=== PATIENT | female | born 1955 | race Caucasian/White ===

== ENCOUNTER 2020-06-23 14:46 | Emergency (ER) | payer MEDICARE, MEDICAID, SELFPAY ==
[2020-06-23 15:28] VITALS: BP 145/85; PULSE 94; RESP 18; TEMP 36.4; O2SAT 97; BMI 38.2
[2020-06-23 15:48] LABS: Glucose, Whole Blood 465 mg/dL (60-115)
[2020-06-23 15:54] LABS: Glucose, Whole Blood 465 mg/dL (60-115)
--- NOTE | 2020-06-23 17:58 | ED.GENADULT ---
HPI - General Adult General Chief complaint: Recheck/Abnormal Lab/Rx Stated complaint: high blood sugar Time Seen by Provider: 06/23/20 17:50 Source: patient Mode of arrival: ambulatory History of Present Illness HPI narrative: patient states yesterday was at outside hospital which was diagnosed with high blood sugar. At that point was sent home on metformin however did not have a prescription for a period since then patient has had no nausea no vomiting no abdominal pain. No dizziness no chest pain. Patient did check her blood sugar today was greater than 400 and came into the emergency department to get evaluated. Patient does state of urine frequency however no dysuria. No fevers no chills. Onset (ago): day(s) Related Data Previous Rx's Medication Instructions Recorded metformin 500 mg PO DAILY #30 tab 06/23/20 nystatin 1 applic TOPICAL DAILY #30 g 06/23/20 Allergies Allergy/AdvReac Type Severity Reaction Status Date / Time No Known Allergies Allergy Verified 06/23/20 15:26 Review of Systems Review of Systems: Yes all other systems are reviewed and are negative Constitutional: Comments: Constitutional : No Weight loss, No Fever, No Chills, No Night Sweats, No Fatigue, No Malaise ENT/Mouth : No Hearing loss, No Ear Pain, No Nasal Congestion, No Sinus Pain, No Hoarseness, No sore throat, No Rhinorrhea, No Swallowing Difficulty Eyes: No Eye Pain, No Swelling, No Redness, No Foreign Body, No Discharge, No Vision Changes Cardiovascular : No Chest Pain, No SOB, No Dyspnea on Exertion, No Orthopnea, No Edema, No Palpitations Respiratory : No Cough, No Sputum, No Wheezing, No Smoke Exposure, No Dyspnea Gastrointestinal : No Nausea, No Vomiting, No Diarrhea, No Constipation, No abdominal Pain, No Hematochezia, No Melena Genitourinary : no irregular bleeding, No Dysuria, Increased urinary frequency No Urinary Incontinence, No Urgency, No Flank Pain, No Urinary Flow Changes, No Hesitancy Musculoskeletal : No joint pain, No Myalgias, No Joint Swelling Skin : No Skin Lesions, mild fungal rash to anterior groin area Neuro : No Weakness, No Numbness, No Paresthesias, No Loss of Consciousness, No Dizziness, No Headache Psych : No Anxiety/Panic, No Depression, No SI/HI/AH/VH, No Social Issues, Heme/Lymph: No Bruising, No Bleeding,No Lymphadenopathy Endocrine : No Polyuria, No Polydipsia, No Temperature Intolerance [facility] Past Medical History Attestation statement: The following information was validated with the patient. Medical History (Updated 06/23/20 @ 21:21 by Jonathon Rudd DO) No known health problems Patient denies medical problems Social History Social History (Updated 06/23/20 @ 18:00 by Jonathon Rudd DO) Household Members: Family Smoking Status: Never smoker Use of substances other than those prescribed or required for medical reasons: No Advance Directives: No Advance Directives Information Provided: Yes Physical Exam Vital Signs and I&O and Narrative: Vital Signs and I&O: Vital Signs Temp 98.5 F 06/23/20 18:45 Pulse 89 06/23/20 18:45 Resp 20 06/23/20 18:45 BP 124/82 06/23/20 18:45 Pulse Ox 96 06/23/20 18:45 Intake & Output 06/23/20 06/23/20 06/24/20 06:59 18:59 06:59 Intake Total 1000 / 1000 Balance 1000 / 1000 Weight 94.801 kg Intake: Intake, IV Amoun t 1000 / 1000 0.9 % Sodium C hloride 1,000 ml 1000 / 1000 @ 999 mls/hr I VCONT .Q1H1M [facility] Rx#:[id number] Body Mass Index 38.2 vital signs reviewed Const: Other: Appearance: Alert. Oriented X3. No acute distress. Eyes: Pupils equal, round and reactive to light. ENT: Pharynx normal. Neck: Normal inspection. Neck supple. CVS: Normal heart rate and rhythm. Pulses normal. Respiratory: No respiratory distress. Breath sounds normal. Abdomen: Soft and nontender. mild fungal rash in genital area. No abscess. No lacerations Skin: Skin warm and dry. Normal skin color. Normal skin turgor. Extremities: No lower extremity edema. No lower extremity edema. Neuro: Oriented X 3. No motor deficit. No sensory deficit. Course Course Course Narrative: differential diagnosis includes DKA. UTI. Hyperglycemia patient re-evaluated at 21:20. Patient shows no signs of DKA. Patient ambulatory tolerating p.o. as. Patient's sugar has improved slightly however has had chronically and will take a long time for to decrease. I will ask Case Management to call to assist with home medications and and insurance. Agrees going home Medical Decision Making Lab Data Result diagrams: 06/23/20 19:01 06/23/20 19:01 Labs: Lab Results 06/23/20 06/23/20 06/23/20 Range/Units 15:39 15:39 19:01 WBC 7.1 (4.8-10.8) X10*3/uL RBC 4.10 L (4.20-5.50) X10*6/uL Hgb 12.4 (12.0-16.0) g/dl Hct 39.8 (37-47) % MCV 97.1 (80-98) fL MCH 30.2 (27.0-33.0) pg MCHC 31.2 (31.0-35.0) g/dl RDW 12.9 (11.0-16.0) % Plt Count 237 (160-400) X10*3/uL MPV 10.9 (9.4-12.3) fL Immature Gran % (Auto) 0.3 (0.0-0.4) % Neut % (Auto) 63.9 (45-73) % Lymph % (Auto) 23.5 (20-40) % Haywood % (Auto) 7.9 (2-11) % Eos % (Auto) 3.3 (0-4) % Baso % (Auto) 1.1 (0-2) % Neut # (Auto) 4.5 (2.0-8.3) X10*3/uL Lymph # (Auto) 1.7 (1.2-4.9) X10*3/uL Haywood # (Auto) 0.6 (0.1-1.2) X10*3/uL Eos # (Auto) 0.2 (0.0-0.4) X10*3/uL Baso # (Auto) 0.1 (0.0-0.2) X10*3/uL Abs Immat Gran (auto) 0.02 (0.00-0.03) X10*3/uL Absolute Nucleated RBC 0.000 (0.0-0.012) X10*3/uL Nucleated RBC % (auto) 0.0 (0.0-0.2) /100WBC Sodium (135-145) mmol/L Potassium (3.3-5.1) mmol/l Chloride (96-108) mmol/L Carbon Dioxide (22-29) mmol/L Anion Gap (12-20) BUN (9-16) mg/dL Creatinine (0.5-1.4) mg/dL Estim Creat Clear Calc Estimated GFR POC Glucose 465 H* 465 H* (60-115) mg/dL Random Glucose (60-115) mg/dL Calcium (8.4-10.2) mg/dL Acetone, Qual (Negative) 06/23/20 Range/Units 19:01 WBC (4.8-10.8) X10*3/uL RBC (4.20-5.50) X10*6/uL Hgb (12.0-16.0) g/dl Hct (37-47) % MCV (80-98) fL MCH (27.0-33.0) pg MCHC (31.0-35.0) g/dl RDW (11.0-16.0) % Plt Count (160-400) X10*3/uL MPV (9.4-12.3) fL Immature Gran % (Auto) (0.0-0.4) % Neut % (Auto) (45-73) % Lymph % (Auto) (20-40) % Haywood % (Auto) (2-11) % Eos % (Auto) (0-4) % Baso % (Auto) (0-2) % Neut # (Auto) (2.0-8.3) X10*3/uL Lymph # (Auto) (1.2-4.9) X10*3/uL Haywood # (Auto) (0.1-1.2) X10*3/uL Eos # (Auto) (0.0-0.4) X10*3/uL Baso # (Auto) (0.0-0.2) X10*3/uL Abs Immat Gran (auto) (0.00-0.03) X10*3/uL Absolute Nucleated RBC (0.0-0.012) X10*3/uL Nucleated RBC % (auto) (0.0-0.2) /100WBC Sodium 138 (135-145) mmol/L Potassium 3.9 (3.3-5.1) mmol/l Chloride 100 (96-108) mmol/L Carbon Dioxide 28 (22-29) mmol/L Anion Gap 14 (12-20) BUN 5 L (9-16) mg/dL Creatinine 0.82 (0.5-1.4) mg/dL Estim Creat Clear Calc 72.4 Estimated GFR > 60 POC Glucose (60-115) mg/dL Random Glucose 406 H* (60-115) mg/dL Calcium 8.5 (8.4-10.2) mg/dL Acetone, Qual Moderate H (Negative) Discharge Plan Discharge Clinical Impression: Acute hyperglycemia, Candidiasis of genitalia in female Patient Disposition: Home, Self-Care Instructions: Type 2 Diabetes in Adults: New Diagnosis (ED), Skin Yeast Infection (ED) Additional Instructions: Thank you for visiting the emergency department today. If your symptoms worsen or do not resolve completely please return to the emergency department immediately or call 911. if he have any questions please call your primary care physician Prescriptions: New metformin 500 mg tablet 500 mg PO DAILY Qty: 30 RF: 0 nystatin 100,000 unit/gram ointment 1 applic topical DAILY Qty: 30 RF: 0 Referrals: [facility] [Provider Group] - 2 days
[2020-06-23 18:45] VITALS: BP 124/82; PULSE 89; RESP 20; TEMP 36.9; O2SAT 96
[2020-06-23 19:07] LABS: MANUAL DIFF FLAG NO
[2020-06-23 19:09] LABS: Basophils Absolute Auto 0.1 X10*3/uL (0.0-0.2); Basophils Percent Auto 1.1 % (0-2); Eosinophils Absolute Auto 0.2 X10*3/uL (0.0-0.4); Eosinophils Percent Auto 3.3 % (0-4); Hematocrit 39.8 % (37-47); Hemoglobin 12.4 g/dl (12.0-16.0); Imm Gran Abs Auto 0.02 X10*3/uL (0.00-0.03); Imm Gran Pct Auto 0.3 % (0.0-0.4); Lymphocytes Absolute Auto 1.7 X10*3/uL (1.2-4.9); Lymphocytes Percent Auto 23.5 % (20-40); Mean Corpuscular HGB Conc 31.2 g/dl (31.0-35.0); Mean Corpuscular Hemoglobin 30.2 pg (27.0-33.0); Mean Corpuscular Volume 97.1 fL (80-98); Mean Platelet Volume 10.9 fL (9.4-12.3); Monocytes Absolute Auto 0.6 X10*3/uL (0.1-1.2); Monocytes Percent Auto 7.9 % (2-11); Neutrophils Absolute Auto 4.5 X10*3/uL (2.0-8.3); Neutrophils Percent Auto 63.9 % (45-73); Platelet Count 237 X10*3/uL (160-400); Red Cell Distribution Width 12.9 % (11.0-16.0); White Blood Count 7.1 X10*3/uL (4.8-10.8)
[2020-06-23] MEDS: 0.9 % Sodium Chloride 1,000 ML 999 ML IVCONT (19:21)
[2020-06-23 19:33] LABS: Acetone, serum QL Moderate (Negative)
[2020-06-23 19:42] LABS: Anion Gap 14 (12-20); Blood Urea Nitrogen 5 mg/dL (9-16); Calcium 8.5 mg/dL (8.4-10.2); Carbon Dioxide 28 mmol/L (22-29); Chloride 100 mmol/L (96-108); Creatinine Clr Calc Pharmacy 72.4; Estimated Glomerular Filt Rate > 60; Glucose Random 406 mg/dL (60-115); Potassium 3.9 mmol/l (3.3-5.1); Sodium 138 mmol/L (135-145)
--- NOTE | 2020-06-23 20:27 | PC.NURSE ---
daughter called, pt ok'd to update daughter
[2020-06-23] MEDS: metFORMIN HCl 500 MG TABLET PO (22:00)
== END 2020-06-23 22:19 | disposition home or self-care (01) ==
PROVIDERS: Emergency Provider Emergency Medicine
DX: B37.3 Candidiasis of vulva and vagina (principal); R73.9 Hyperglycemia, unspecified
CPT/HCPCS: 36415; 80048; 82009; 82947; 85025; 96361; 96374; 99284

== ENCOUNTER 2020-07-30 17:00 | Outpatient (REF) | payer MEDICARE, MEDICAID, SELFPAY ==
--- NOTE | 2020-07-30 | MM_ITS ---
EXAMINATION: MM SCREENING DIGITAL BREAST TOMOSYNTHESIS, BILATERAL CLINICAL INFORMATION: Screening. Asymptomatic. Prior [id number] mammography currently unavailable. The lifetime risk of breast cancer based on the Tyrer-Cuzick Model is 12%. COMPARISON: None. TECHNIQUE: Digital breast tomosynthesis is performed in both the craniocaudal and mediolateral oblique views along with computer-aided detection (CAD). Synthesized 2D images are generated from the tomosynthesis. Additional left CC view is provided. FINDINGS: The breasts are almost entirely fatty (ACR BI-RADS breast composition Category a). There is no significant mass or architectural abnormality. No abnormal calcifications. The skin contours are smooth. MM/MM tomosynthesis screening BI IMPRESSION: No mammographic evidence of malignancy. ASSESSMENT: BI-RADS 1: Negative RECOMMENDATION: Routine annual mammography screening. This patient's information was entered into a reminder system with a target due date for their next mammogram.
== END 2020-07-30 17:01 | disposition home or self-care (01) ==
LOC: HO.MAMMO 17:00
DX: Z12.31 Encounter for screening mammogram for malignant neoplasm of breast (principal)
CPT/HCPCS: 77063; 77067

== ENCOUNTER → 2020-08-21 08:46 | Outpatient (BNVA) | payer MEDICARE, MEDICAID, SELFPAY | PROVIDERS: PCP Nurse Practitioner Primary Care; Referring Provider Nurse Practitioner Primary Care; Visit Provider Physician Assistant | DX: Z12.11 Encounter for screening for malignant neoplasm of colon (principal); E11.9 Type 2 diabetes mellitus without complications; Z79.899 Other long term (current) drug therapy | CPT/HCPCS: Q3014 ==

== ENCOUNTER 2020-12-18 09:04 | Outpatient (REF) | payer MEDICARE, MEDICAID, SELFPAY ==
--- NOTE | ~2020-12-18 | MM_ITS ---
EXAMINATION: BONE DENSITOMETRY CLINICAL INDICATION: Menopause. COMPARISON: This is the patient's baseline examination. TECHNIQUE: Using a [employer] DXA System (software version: 13.1) manufactured by [employer], dual-energy x-ray absorptiometry was performed of the lumbar spine and left hip. The images are of good technical quality. Summary results are attached. FINDINGS: AP SPINE L1-L2 (excluding L3 and L4): The data of L1-L4 has been changed to exclude the L3 and L4 vertebral bodies, because Charleen sclerosis at these levels may cause overestimation of lumbar spine density. BMD 1.295 g/cm2, Z-score 2.1, T-score 1.1, normal. LEFT FEMUR, NECK: BMD 0.905 g/cm2, Z-score 0.2, T-score -1.0, normal. LEFT FEMUR, TOTAL: BMD 1.082 g/cm2, Z-score 1.4, T-score 0.6, normal. IDENTIFIED RISK FACTORS: Early menopause, height loss, hysterectomy, secondary osteoporosis. HISTORY OF FRACTURE: None listed. MEDICATIONS: Calcium, vitamin D. MM/XR DEXA axial skeleton IMPRESSION: 1. DIAGNOSIS: Normal bone density based on the lowest T-score value of -1.0 in the femoral neck applying World Health Organization criteria. 2. 10-YEAR FRACTURE RISK PREDICTION, FRAX: Major osteoporotic fracture (clinical spine, forearm, hip or shoulder) 7.7%. Hip fracture 0.6%. 3. Treatment Recommendations: NOF guidelines recommend consideration for treatment in postmenopausal women and men age 50 and older presenting with the following: -A hip or vertebral (clinical or morphometric) fracture. -T-score less than or equal to -2.5 at the femoral neck or spine after appropriate evaluation to exclude secondary causes. -Low bone mass at the hip or spine and a 10-year fracture probability by FRAX of greater than or equal to 3% for hip fracture or greater than or equal to 20% for major osteoporotic fracture based on the [place] adapted WHO algorithm. 4. Other Recommendations: All treatment decisions require clinical judgment and consideration of individual patient factors, including patient preferences, comorbidities, previous drug use, risk factors not captured in the FRAX model (e.g. frailty, falls, vitamin D deficiency, increased bone turnover, interval significant decline in bone density) and possible under or overestimation of fracture risk by FRAX. FUTURE SCAN RECOMMENDATION: People with diagnosed cases of osteoporosis or at high risk for fracture should have regular bone mineral density tests. For patients eligible for Medicare, routine testing is allowed once every 2 years. The testing frequency can be increased to one year for patients who have rapidly progressing disease, those who are receiving or discontinuing medical therapy to restore bone mass, or have additional risk factors.
== END 2020-12-18 09:05 | disposition home or self-care (01) ==
LOC: HO.MAMMO 09:04
PROVIDERS: Visit Provider Nurse Practitioner Primary Care
DX: M81.8 Other osteoporosis without current pathological fracture (principal); Z90.710 Acquired absence of both cervix and uterus; Z78.0 Asymptomatic menopausal state
CPT/HCPCS: 77080

== ENCOUNTER 2021-12-22 16:22 | Outpatient (REF) | payer MEDICARE, MEDICAID, SELFPAY ==
--- NOTE | ~2021-12-22 | US_ITS ---
EXAMINATION: US SOFT TISSUE NECK CLINICAL INFORMATION: Large lump right side of the neck. An enlarged lymph node versus abscess. COMPARISON: None. TECHNIQUE: Ultrasound of the neck soft tissues is performed with high- frequency kathleen-scale imaging and color Doppler. FINDINGS: There are 2 isoechoic lesions in the right submandibular space corresponding to the lumps felt by the patient. These lesions measure 2.7 x 3.6 cm and 3.2 x 2.9 cm. There slightly hypervascular on color ultrasound. These appear to be lymph nodes. The submandibular gland is not visualized and these lymph nodes could be within the gland. There are smaller lymph nodes seen and have benign characteristics. For comparison, the left submental space was evaluated revealing no mass or lymph node. US/US soft tiss head and/or neck IMPRESSION: Two abnormal-appearing lymph nodes in the right submandibular space. Nodes could be within the submandibular gland as they cannot be from the submandibular gland. These can be targeted by ultrasound for biopsy. Further evaluation with CT neck with IV contrast can be performed.
== END 2021-12-22 16:23 | disposition home or self-care (01) ==
LOC: HO.US 16:22
PROVIDERS: PCP Nurse Practitioner Primary Care; Visit Provider Internal Medicine
DX: R22.1 Localized swelling, mass and lump, neck (principal)
CPT/HCPCS: 76536

== ENCOUNTER 2021-12-23 08:22 | Outpatient (REF) | payer MEDICARE, MEDICAID, SELFPAY ==
--- NOTE | ~2021-12-23 | MM_ITS ---
EXAMINATION: MM SCREENING DIGITAL BREAST TOMOSYNTHESIS, BILATERAL CLINICAL INFORMATION: Screening. Asymptomatic. The lifetime risk of breast cancer based on the Tyrer-Cuzick Model is 12%. COMPARISON: Mammography: 07/30/2020 TECHNIQUE: Digital breast tomosynthesis is performed in both the craniocaudal and mediolateral oblique views along with computer-aided detection (CAD). Synthesized 2D images are generated from the tomosynthesis. Additional left MLO view is provided. FINDINGS: The breasts are almost entirely fatty (ACR BI-RADS breast composition Category a). Background stromal markings are similar to prior exam. There is no interval mass or architectural abnormality. Again, there are scattered benign punctate round, rim, and dermal calcifications. The right breast has new grouped punctate calcifications anterior to a stable group of calcifications central upper outer breast. The additional calcifications may be vascular in etiology. Patient will be recalled for additional imaging. The axilla and skin contours are unremarkable. MM/MM tomosynthesis screening BI IMPRESSION: Right: -New faint grouped calcifications central upper outer right breast, possibly benign vascular in etiology. Left: -No mammographic evidence of malignancy. ASSESSMENT: BI-RADS 0: Incomplete - Need Additional Imaging Evaluation RECOMMENDATION: Routine annual mammography screening. This patient's information was entered into a reminder system with a target due date for their next mammogram.
== END 2021-12-23 08:23 | disposition home or self-care (01) ==
LOC: HO.MAMMO 08:22
PROVIDERS: PCP Nurse Practitioner Primary Care
DX: Z12.31 Encounter for screening mammogram for malignant neoplasm of breast (principal)
CPT/HCPCS: 77063; 77067

== ENCOUNTER 2021-12-25 07:40 | Outpatient (REF) | payer MEDICARE, MEDICAID, SELFPAY ==
--- NOTE | ~2021-12-25 | MM_ITS ---
EXAMINATION: MM DIAGNOSTIC DIGITAL MAMMOGRAPHY, RIGHT CLINICAL INFORMATION: New grouping of calcifications. COMPARISON: Mammography: 12/23/2021 and 07/30/2020 TECHNIQUE: Digital mammography is performed in the following views: Spot magnification views of the right breast and 90-degree mediolateral and craniocaudal views. FINDINGS: The breasts are almost entirely fatty (ACR BI-RADS breast composition Category a). The grouping of calcifications adjacent to a stable grouping within the upper outer aspect of the right breast appear to have been present on tomographic views in mediolateral oblique projection from 07/30/2020. Recommend 6-month followup diagnostic right breast study to ensure stability. Results are discussed with the patient at time of visit. MM/MM added views RT IMPRESSION: Probably benign right breast calcifications. ASSESSMENT: BI-RADS 3: Probably Benign. RECOMMENDATION: Diagnostic mammography in 6 months. This patient's information was entered into a reminder system with a target due date for their next mammogram.
== END 2021-12-25 07:41 | disposition home or self-care (01) ==
LOC: HO.MAMMO 07:40
PROVIDERS: Visit Provider Nurse Practitioner Primary Care
DX: R92.1 Mammographic calcification found on diagnostic imaging of breast (principal)
CPT/HCPCS: 77065

== ENCOUNTER 2022-01-20 11:02 | Outpatient (REF) | payer MEDICARE, MEDICAID, SELFPAY ==
--- NOTE | ~2022-01-20 | US_ITS ---
PROCEDURE: US-GUIDED SUBMANDIBULAR LYMPH NODE CORE BIOPSY, RIGHT CLINICAL INFORMATION: Abnormal lymph node on soft tissue neck study. COMPARISON: 12/22/2021 TECHNIQUE: Ultrasound-guided core biopsy. FINDINGS: Informed consent was obtained from the patient prior to the procedure. During this process, the procedure and potential alternatives were explained, along with the intended outcome and benefits. The risks of the procedure, as well as the risk of not doing the procedure, were discussed. The patient was given the opportunity to ask questions regarding the procedure and appeared competent to make medical decisions. A signed consent form which documents this discussion was placed in the medical record. Using sterile technique and ultrasound guidance, a 19-gauge guiding needle was directed into the lymph node. Through this, three 20-gauge core biopsies were obtained with samples given to pathology. Initial pathology report is of an adequate specimen. US/US biopsy lymph node IMPRESSION: Successful ultrasound-guided core biopsy right neck submandibular lymph node.
[2022-01-20] MEDS: Lidocaine HCl 1 % MPF 5 ML VIAL SUBCUT (12:03)
== END 2022-01-20 11:03 | disposition home or self-care (01) ==
LOC: HO.US 11:02
PROVIDERS: Visit Provider Nurse Practitioner Primary Care
DX: C77.0 Secondary and unspecified malignant neoplasm of lymph nodes of head, face and neck (principal)
CPT/HCPCS: 38505; 76942; 88305; 88333; 88341; 88342

== ENCOUNTER 2022-02-04 07:28 | Outpatient (REF) | payer MEDICARE, MEDICAID, SELFPAY ==
--- NOTE | ~2022-02-04 | CT_ITS ---
CT SOFT TISSUE NECK WITH CONTRAST CLINICAL INFORMATION: Staging. COMPARISON: None available. TECHNIQUE: Following the intravenous administration of 80 mL of Omnipaque 350 intravenous contrast, helical imaging was performed in the axial plane with generation of coronal and sagittal reformatted images. This CT examination was performed using dose optimization techniques as appropriate, variously including the following: *Automated exposure control *Adjustment of mA and/or kV according to patient size (this includes techniques or standardized protocols for targeted exams where dose is matched to indication/reason for exam; i.e. extremities or head) *Use of iterative reconstruction technique FINDINGS: There is a 2 cm right palatine tonsillar mass effacing the right glossotonsillar sulcus that is highly suspicious for a squamous cell carcinoma. There is metastatic lymphadenopathy within the right neck including a large dominant 4 cm right level IIA kenyetta mass that mildly distorts the adjacent right internal jugular vein. There are several small likely metastatic lymph nodes along the upper margin of the lower margin of this dominant kenyetta mass, the latter within level III measuring up to 1.2 cm long transaxial dimension. Additional small nonpathologic size criteria lymph nodes within the suprahyoid and infrahyoid neck can be further assessed with PET as clinically indicated. The parotid glands are homogeneous in attenuation. The submandibular glands are normal. The small 3 mm nodule within the left thyroid lobe that is below size criteria for follow-up.. No retropharyngeal fluid collection is seen. The laryngeal structures are normal. The parapharyngeal fat is preserved. The carotid sheath vasculature opacify normally. The superior mediastinum is unremarkable. The lung apices are clear. There is mild mucosal thickening within the maxillary sinuses and ethmoid air cells bilaterally. There is rightward deviation of the nasal septum with a rightward directed nasal septal spur. Periapical lucency involving portions of the maxillary mandibular dentition. There is multilevel cervical spondylosis. The imaged portions of the brain parenchyma are unremarkable. CT/CT soft tissue neck w con IMPRESSION: - There is a 2 cm right palatine tonsillar mass effacing the right glossotonsillar sulcus that is highly suspicious for a primary squamous cell carcinoma. - There is metastatic lymphadenopathy within the right neck including a large dominant 4 cm right level IIA kenyetta mass that mildly distorts the adjacent right internal jugular vein. There are several small likely metastatic lymph nodes along the upper margin of the lower margin of this dominant kenyetta mass, the latter within level III measuring up to 1.2 cm long transaxial dimension. Additional small nonpathologic size criteria lymph nodes within the suprahyoid and infrahyoid neck can be further assessed with PET as clinically indicated. Findings were discussed with Dr. Austin at 4:21pm on 02/05/2022.
--- NOTE | ~2022-02-04 | CT_ITS ---
EXAMINATION: CT CHEST WITH CONTRAST CLINICAL INFORMATION: Staging. Head and neck cancer. COMPARISON: None TECHNIQUE: Multidetector volumetric CT imaging of the chest was obtained after the administration of 85 mL of Omnipaque 350 intravenous contrast without immediate adverse reactions. Axial MIP volume rendering provided. Sagittal and coronal reformatted images were obtained. This CT examination was performed using dose optimization techniques as appropriate, variously including the following: *Automated exposure control *Adjustment of mA and/or kV according to patient size (this includes techniques or standardized protocols for targeted exams where dose is matched to indication/reason for exam; i.e. extremities or head) *Use of iterative reconstruction technique DLP: 256 mGy-cm FINDINGS: Mild coronary artery calcification. LUNGS: There is a 2 mm peripheral or subpleural right middle lobe nodule adjacent to the major fissure axial image 386 series 7. There is a 3 mm peripheral or subpleural right lower lobe nodule adjacent to the major fissure axial image 308 series 7. These probably represent subpleural lymph nodes. The lungs are otherwise clear. MEDIASTINUM: The heart is normal in size. There is mild coronary artery calcification. No enlarged lymph nodes are seen. There is no pericardial effusion. PLEURA: There is no pleural effusion. No pleural mass or thickening. AXILLA: No lymphadenopathy. UPPER ABDOMEN: See abdominal and pelvic CT from the same day OSSEOUS STRUCTURES: There are mild degenerative changes of the spine. CT/CT chest w con IMPRESSION: 2 small right middle and lower lobe nodules probably representing subpleural lymph nodes. Fleischner guidelines were followed.
--- NOTE | ~2022-02-04 | CT_ITS ---
EXAMINATION: CT ABDOMEN AND PELVIS WITH CONTRAST CLINICAL INFORMATION: Staging head and neck cancer COMPARISON: None TECHNIQUE: Multidetector volumetric images were obtained from the superior aspect of the liver through the pubic symphysis following administration 85 mL of Omnipaque 350 intravenous contrast. Sagittal and coronal reformatted images were obtained on the technologist's workstation. Oral contrast: Yes This CT examination was performed using dose optimization techniques as appropriate, variously including the following: *Automated exposure control *Adjustment of mA and/or kV according to patient size (this includes techniques or standardized protocols for targeted exams where dose is matched to indication/reason for exam; i.e. extremities or head) *Use of iterative reconstruction technique DLP: 369 mGy-cm FINDINGS: LUNG BASES: The visualized lung bases are unremarkable. LIVER, GALLBLADDER, AND BILIARY TREE: The liver is normal in size, shape, and attenuation. No focal hepatic lesion or biliary ductal dilatation is present. There are gallstones in the gallbladder. PANCREAS: Unremarkable. SPLEEN: Unremarkable. ADRENAL GLANDS: Unremarkable. KIDNEYS AND URETERS: There are small low-attenuation right renal lesions probably representing small cysts. No imaging follow-up. Kidneys are otherwise unremarkable. BLADDER: Not optimally distended but appears unremarkable. GASTROINTESTINAL TRACT: There is stool throughout the colon. Small and large bowel is otherwise unremarkable. The appendix is normal. The Stomach is normal. ABDOMINAL WALL: There are small umbilical and bilateral inguinal hernias containing fat. LYMPH NODES: Normal. VASCULAR: Unremarkable. PELVIC VISCERA: The uterus appears to have been removed. No pelvic mass. OSSEOUS STRUCTURES: There are degenerative changes of the spine. CT/CT abdomen pelvis w con IMPRESSION: No evidence of metastatic disease. Gallstones. Probable small right renal cysts. Stool throughout the colon questionable for mild constipation. Fleischner guidelines were followed.
[2022-02-04] MEDS: Barium Sulfate Oral (Vanilla) 450 ML ORAL.SUSP 900 ML PO (10:09)
[2022-02-04] MEDS: iohexoL 350 MG/ML 100 ML INFUS..BTL IV (10:10)
== END 2022-02-04 07:29 | disposition home or self-care (01) ==
LOC: HO.CT 07:28
PROVIDERS: PCP Nurse Practitioner Primary Care; Visit Provider Internal Medicine
DX: C77.9 Secondary and unspecified malignant neoplasm of lymph node, unspecified (principal)
CPT/HCPCS: 70491; 71260; 74177; Q9967

== ENCOUNTER 2022-06-29 12:57 | Outpatient (REF) | payer MEDICARE, MEDICAID, SELFPAY ==
--- NOTE | ~2022-06-29 | MM_ITS ---
EXAMINATION: MM DIAGNOSTIC DIGITAL BREAST TOMOSYNTHESIS, RIGHT CLINICAL INFORMATION: Short interval six-month follow-up probable benign calcifications mid upper outer right breast. Family history breast cancer, mother. TC score 12%. COMPARISON: Mammography: 12/25/2021, 12/23/2021 (BI-RADS 0), 07/30/2020 (new baseline). TECHNIQUE: Digital breast tomosynthesis is performed in both the craniocaudal and mediolateral oblique views along with computer-aided detection (CAD). Synthesized 2D images are generated from the tomosynthesis. FINDINGS: The breasts are almost entirely fatty (ACR BI-RADS breast composition Category a). Background stromal and fibroglandular densities are stable. There is no interval mass or developing density or architectural abnormality. There are scattered round and rim calcifications anterior right breast. The calcifications for follow-up, fine mid upper outer quadrant adjacent to a coarse calcification, are stable when compared with prior diagnostic exam. In retrospect, there are likely similar finding calcifications in 2020 although not as conspicuous on standard imaging. There are no significant changes. Right breast calcifications will be reassessed again in 6 months at time of annual bilateral mammography. Results are provided to the patient at time of visit by the technologist. MM/MM tomosynthesis diagnostic RT IMPRESSION: -Fine calcifications mid upper outer right breast are similar to prior diagnostic exam and possibly chronic. ASSESSMENT: BI-RADS 3: Probably Benign RECOMMENDATION: Diagnostic mammography at time of annual bilateral mammography, due in 6 months. This patient's information was entered into a reminder system with a target due date for their next mammogram.
== END 2022-06-29 12:58 | disposition home or self-care (01) ==
LOC: HO.MAMMO 12:57
PROVIDERS: PCP Nurse Practitioner Primary Care; Visit Provider Nurse Practitioner Primary Care
DX: R92.1 Mammographic calcification found on diagnostic imaging of breast (principal)
CPT/HCPCS: 77061; 77065

== ENCOUNTER 2023-01-03 10:26 | Outpatient (REF) | payer MEDICARE, MEDICAID, SELFPAY ==
--- NOTE | ~2023-01-03 | MM_ITS ---
EXAMINATION: MM DIAGNOSTIC DIGITAL MAMMOGRAPHY, BILATERAL CLINICAL INFORMATION: Right breast calcifications. Left breast screening. The lifetime risk of breast cancer based on the Tyrer-Cuzick Model is 12%. COMPARISON: Mammography: 06/29/2022 and studies dating back to 07/30/2020 TECHNIQUE: Digital mammography is performed in craniocaudal and mediolateral oblique views along with computer-aided detection (CAD). Right breast spot magnification views performed in craniocaudal and 90 degree mediolateral views. FINDINGS: The breasts are almost entirely fatty (ACR BI-RADS breast composition Category a). There are no new significant masses, abnormal calcifications, or other abnormalities. The grouping of calcifications about the upper outer aspect of the right breast appears stable. One-year follow-up diagnostic study is suggested. There are no significant changes from prior study. Results are provided to the patient at time of visit by the technologist. MM/MM diagnostic mammo unilat RT IMPRESSION: There are no significant changes from prior study. ASSESSMENT: BI-RADS 3: Probably Benign RECOMMENDATION: Diagnostic mammography at time of next annual exam, due in 12 months. This patient's information was entered into a reminder system with a target due date for their next mammogram.
== END 2023-01-03 10:27 | disposition home or self-care (01) ==
LOC: HO.MAMMO 10:26
PROVIDERS: PCP Nurse Practitioner Primary Care; Visit Provider Nurse Practitioner Primary Care
DX: R92.1 Mammographic calcification found on diagnostic imaging of breast (principal)
CPT/HCPCS: 77062; 77065

== ENCOUNTER 2024-01-10 13:21 | Outpatient (REF) | payer MEDICARE, MEDICAID, SELFPAY ==
--- NOTE | ~2024-01-10 | MM_ITS ---
EXAMINATION: MM DIAGNOSTIC DIGITAL BREAST TOMOSYNTHESIS, BILATERAL CLINICAL INFORMATION: 1 year follow-up right breast calcifications, probably benign. If stable, this will establish two-year stability and benignity. Patient also here for bilateral screening. COMPARISON: Mammography: 01/03/2023, 06/29/2022, 12/25/2021, 12/23/2021 (BI-RADS 0), 07/30/2020 (new baseline). TECHNIQUE: Digital breast tomosynthesis is performed in both the craniocaudal and mediolateral oblique views along with computer-aided detection (CAD). Synthesized 2D images are generated from the tomosynthesis. FINDINGS: The breasts are almost entirely fatty (ACR BI-RADS breast composition Category a). There has been no significant change in the small group of calcifications in the right breast upper outer quadrant, mid one third. They have remained stable over 2 years and are benign. No further follow-up recommended. There are no suspicious masses, suspicious grouped calcifications, or areas of architectural distortion in either breast. The parenchymal pattern is stable from prior exams. MM/MM tomosynthesis diagnostic BI IMPRESSION: -There are no findings suspicious for malignancy in either breast. -Calcifications in the upper outer right breast are stable over 2 years and benign. No further follow-up recommended. -Recommend the patient resume routine annual screening to include both breasts. ASSESSMENT: BI-RADS BI-RADS 2 - Benign Findings RECOMMENDATION: 1 year F/U Results were provided to the patient at time of visit by the technologist. This patient's information was entered into a reminder system with a target due date for their next mammogram.
== END 2024-01-10 13:22 | disposition home or self-care (01) ==
LOC: HO.MAMMO 13:21
PROVIDERS: PCP Nurse Practitioner Primary Care; Visit Provider Nurse Practitioner Primary Care
DX: R92.1 Mammographic calcification found on diagnostic imaging of breast (principal)
CPT/HCPCS: 77062; 77066

== ENCOUNTER → 2024-01-10 13:30 | Outpatient (BNV) | payer MEDICARE, MEDICAID, SELFPAY | PROVIDERS: PCP Nurse Practitioner Primary Care; Visit Provider Radiology Diagnostic Radiology | DX: R92.1 Mammographic calcification found on diagnostic imaging of breast (principal) | CPT/HCPCS: 77066; G0279 ==

== ENCOUNTER 2025-01-17 10:00 | Outpatient (REF) | payer MEDICARE, MEDICAID, SELFPAY ==
--- OUTSIDE RECORDS SUMMARY | 2025-01-17 11:14 | XMS_ITS | Data Portability ---
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 Posttreatment pet show complete response. Most recent TSH 3.15. She is doing well overall. No pain. Swallowing is acceptable. There is no evidence of disease on exam including bimanual palpation and flexible laryngoscopy. She has a strong gag, oropharynx visualized with the scope. Follow up 4 months. 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 Posttreatment pet show complete response. CT chest since her last visit no evidence of metastatic disease. She is doing well overall. No pain. Swallowing is acceptable. There is no evidence of disease on exam including bimanual palpation and flexible laryngoscopy. There are radiation changes to the epiglottis and arytenoids. She has a strong gag, oropharynx visualized with the scope. Follow up 4 months. 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 Posttreatment pet show complete response. She is doing well overall. No pain. Swallowing is acceptable. There is no evidence of disease on exam including bimanual palpation and flexible laryngoscopy. There are radiation changes to the epiglottis and arytenoids. She has a strong gag, oropharynx visualized with the scope. A little more mucus noted on exam today. Recommend saline. Follow up 4 months. [email or web address] Not available 12/06/2024 11:48:43 Plan of Treatment Reminders Order Date Submit Date Provider Last Modified By Organization Details Last Modified Time Details Appointments Establish ed 15 2024 09:45A M KENYA THOMASON MD Not available Not available Not available Lab None recorded. Referral None recorded. Procedures None recorded. Surgeries None recorded. Imaging None recorded. Medication Orders None recorded. Patient TargetsNo targets recorded. Patient InstructionsNo instructions recorded. Reason for Referral None Reported. Results Created Date Observation Date Name Description Value Unit Range Abnormal Flag Note LastModifiedBy Organization Detail LastModifiedTime 05/10/20 24 09/27/2022 imagi ng/di agnos tic resul t No observ ation record ed. [email or web address] Not Available 19:57:33 05/10/20 24 12/13/2023 imagi ng/di agnos tic resul t No observ ation record ed. [email or web address] Not Available 19:57:39 05/10/20 24 12/13/2023 audio gram No observ ation record ed. [email or web address] Not Available 19:57:40 05/10/20 24 12/22/2021 imagi ng/di agnos tic resul t No observ ation record ed. [email or web address] Not Available 19:57:41 05/10/20 24 01/20/2022 imagi ng/di agnos tic resul t No observ ation record ed. [email or web address] Not Available 19:57:46 05/10/20 24 01/20/2022 imagi ng/di agnos tic resul t No observ ation record ed. [email or web address] Not Available 19:57:47 05/10/20 24 01/20/2022 imagi ng/di agnos tic resul t No observ ation record ed. [email or web address] Not Available 19:57:49 05/10/20 24 02/04/2022 imagi ng/di agnos tic resul t No observ ation record ed. [email or web address] Not Available 19:57:51 05/10/20 24 02/04/2022 imagi ng/di agnos tic resul t No observ ation record ed. [email or web address] Not Available 19:57:52 05/10/20 24 02/04/2022 imagi ng/di agnos tic resul t No observ ation record ed. [email or web address] Not Available 19:57:54 05/10/20 24 02/04/2022 imagi ng/di agnos tic resul t No observ ation record ed. [email or web address] Not Available 19:57:56 05/10/20 24 02/04/2022 imagi ng/di agnos tic resul t No observ ation record ed. [email or web address] Not Available 19:57:57 05/10/20 24 03/30/2022 imagi ng/di agnos tic resul t No observ ation record ed. [email or web address] Not Available 19:58:10 05/10/2005/26/2023 imagi ng/di agnos tic resul t No observ ation record ed. [email or web address] Not Available 19:58:13 05/10/20 24 12/13/2023 audio gram No observ ation record ed. [email or web address] Not Available 19:58:23 05/10/20 24 03/30/2022 audio gram No observ ation record ed. [email or web address] Not Available 19:58:32 Result Notes None recorded. Problems Name Problem SNOMED Code Status Onset Date Resolution Date Notes Provider Name and Address Organization Details Recorded Time Sensorine ural hearing loss of bilateral ears 909112613 Active 2021 Sensorineu ral hearing loss, bilateral; Note: Date Diagnosed: 03/30/2022 11:57 AM (H90.3) Not Available [facility] 4 03:27:14 History of malignant neoplasm of oral cavity 542680994 Active 2022 Personal history of malignant neoplasm of other sites of lip, oral cavity, and pharynx; Note: Date Diagnosed: 10/18/2022 8:53 AM (Z85.818) Note: Date Diagnosed: 10/18/2022 8:53 AM (Z85.818) Not Available [facility] 4 01:30:13 Malignant tumor of oropharyn x 771410000 Active 2021 Malignant neoplasm of oropharynx , unspecifie d; Note: Date Diagnosed: 02/10/2022 10:33 AM (C10.9) Not Available [facility] 4 03:27:14 Problem Notes None recorded. Procedures Surgical History Date Name Laterality Status Provider Name and Address Organization Details Recorded Time 12/07/19 Fiberoptic Laryngoscopy (Comprehensive) completed KENYA THOMASON MD [address] [place] [address], [phone], [facility] 12/06/2024 11:29:42 07/10/20 24 Fiberoptic Laryngoscopy (Comprehensive) completed KENYA THOMASON MD [address] [place] [address], [phone], [place] [facility] 07/10/2024 10:19:07 03/15/20 24 Fiberoptic Laryngoscopy (Comprehensive) completed KENYA THOMASON MD [address] [place] [address],[address], [phone], [place] [facility] 03/15/2024 10:38:45 Imaging Results Imaging Date Name Status LastModified by Organiz ation Details LastModified Time 09/27/2022 imaging/diagno stic result completed Information not available 05/10/2024 19:57:33 12/13/2023 imaging/diagno stic result completed Information not available 05/10/2024 19:57:39 12/13/2023 audiogram completed Information not available 05/10/2024 19:57:40 12/22/2021 imaging/diagno stic result completed Information not available 05/10/2024 19:57:41 01/20/2022 imaging/diagno stic result completed Information not available 05/10/2024 19:57:46 01/20/2022 imaging/diagno stic result completed Information not available 05/10/2024 19:57:47 01/20/2022 imaging/diagno stic result completed Information not available 05/10/2024 19:57:49 02/04/2022 imaging/diagno stic result completed Information not available 05/10/2024 19:57:51 02/04/2022 imaging/diagno stic result completed Information not available 05/10/2024 19:57:52 02/04/2022 imaging/diagno stic result completed Information not available 05/10/2024 19:57:54 02/04/2022 imaging/diagno stic result completed Information not available 05/10/2024 19:57:56 02/04/2022 imaging/diagno stic result completed Information not available 05/10/2024 19:57:57 03/30/2022 imaging/diagno stic result completed Information not available 05/10/2024 19:58:10 05/26/2023 imaging/diagno stic result completed Information not available 05/10/2024 19:58:13 12/13/2023 audiogram completed Information not available 05/10/2024 19:58:23 03/30/2022 audiogram completed Information not available 05/10/2024 19:58:32 Procedure Notes None recorded. Medical Equipment None Reported. Allergies No known drug allergies Medications Name Sig Start Date Stop Date Status Note LastModified by Organization Details LastModified Time metformin 1,000 mg tablet 03/15 completed Medication ID: [id number] Bran d Name: metformin S end Method: E-Prescribe d Subs Allowed: subs OK Medicati onGenericNa me: metformin M edication ID: [id number] Bran d Name: metformin S end Method: E-Prescribe d Subs Allowed: subs OK Medicati onGenericNa me: metformin Not Available Not Available Not Available Vitals Date Recorded Body height Body mass index (BMI) Body weight Provider Name and Address Organization Details Last Updated DateTime 12/06/2024 157.48 cm 28 kg/m2 11761.63 g Anahi Khalil [place] [facility] 12/06/2024 11:16:06 Date Recorded Body height Body mass index (BMI) Body weight Provider Name and Address Organization Details Last Updated DateTime 03/15/2024 157.48 cm 27.8 kg/m2 53242.04 g Anahi Khalil [place] [facility] 03/15/2024 10:31:37 Date Recorded Body height Body mass index (BMI) Body weight Provider Name and Address Organization Details Last Updated DateTime 07/10/2024 157.48 cm 27.7 kg/m2 52360.24 g Anahi Khalil [place] [facility] 07/10/2024 10:00:39 Social History None recorded. Functional Status None recorded. Mental Status None recorded. Family History Nothing Reported. Medical History No medical history recorded. Gynecological HistoryNo gynecological history recorded. Obstetrics History GPAL:G 0 P 0 0 0 0 Past Encounters Encounter ID Performer Location Encounter Start Date Encounter Closed Date Diagnosis/Indication Diagnosis SNOMED-CT Code Diagnosis ICD10 Code Diagnosis Note [id number] KENYA THOMASON MD [facility] on [address] [place] [phone] 03/15/2024 10:24:37 03/15/2024 15:16:13 History of malignant neoplasm of oral cavity 770171721 Z85.819 [id number] KENYA THOMASON MD [facility] on [address] [place] [phone] 07/10/2024 09:41:56 07/10/2024 10:21:13 History of malignant neoplasm of oral cavity 566551065 Z85.819 [id number] KENYA THOMASON MD [facility] on [address] [place] [address] 12/06/2024 11:13:05 12/06/2024 11:35:21 History of malignant neoplasm of oral cavity 576534017 Z85.819 Health Concerns Section Related Observation LastModified by Organization Detai ls LastModified Time None Recorded Concern Status LastModified by Organization Details LastModified Time None Recorded Advance Directives Directive None Recorded Payers Encounter Date Sequence Insurance Name Policy Number Policy Luke Covered Member ID Luke Member ID Guarantor Name 03/15/2024 1 [place] [employer] Venecia S Markee [id number] Venecia S Markee 03/15/2024 2 [place] Venecia S Markee [id number] Venecia S Markee 07/10/2024 1 [place] [employer] Venecia S Markee [id number] Venecia S Markee 07/10/2024 2 [place] Venecia S Markee [id number] Venecia S Markee 12/06/2024 1 [place] [employer] Venecia S Markee [id number] Venecia S Markee 12/06/2024 2 [place] Venecia S Markee [id number] Venecia S Markee Notes Date Note Type Note Provider Name and Address Organization Details Recorded Time 03/15/2024 text/html 68-year-old marcia rios with a 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 Posttreatment pet show complete response. Most recent TSH 3.15. She is doing well. No pain. Swallowing is fine. 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 Posttreatment pet showed complete response. Most recent TSH 3.15. She is doing well. No pain. Swallowing is fine.CT chest since her last visit:1. Unchanged 2 mm groundglass nodule in the right upper lobe.2. No specific evidence of metastatic disease. KENYA THOMASON MD [address] [place] [address], [phone], [place] [facility] 07/14/2024 20:05:36 12/06/2024 text/html Pretty good with swallowing, struggles at time.No ear pain.No sore throat. 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 Posttreatment pet showed complete response. Most recent TSH 3.15. She is doing well. No pain. Swallowing is fine.CT chest since her last visit:1. Unchanged 2 mm groundglass nodule in the right upper lobe.2. No specific evidence of metastatic disease. KENYA THOMASON MD [address] [place] [address], [phone], [place] [facility] 12/06/2024 11:49:07 OBGyn Episode No OBEpisode recorded.
--- OUTSIDE RECORDS SUMMARY | 2025-01-17 11:14 | XMS_ITS | Clinical Summary ---
Author Organization [employer] Address [address] [place] [address] 7 [place] [address] Care Team Providers Care Museum Docent Name Role Phone Mell Terrell Primary Care Provider Allergies No known active allergies Medications * This document contains information received from the source organization and may not represent a complete record from that organization. Diclofenac Sodium (Voltaren) 1 % gelIndications: Acute pain of left knee Apply up to 4x/d to affected joint(s) for pain/swelling 100 g 2 12/07/2022 Active Active Problems Problem Noted Date Diagnosed Date Counseling, unspecified 11/08/2023 Abnormal mammogram 06/22/2023 Overview (06/22/2023): 01/03/23 BI-RADS 3: Probably Benign - recommended Diag mammo at 1 year 06/29/22 BI-RADS 3: Probably Benign - RECOMMENDATION: Diagnostic mammography at time of annual bilateral mammography, due in 6 months. IMPRESSION: -Fine calcifications mid upper outer right breast are similar to prior diagnostic exam and possibly chronic. Healthcare maintenance 06/22/2023 Overview (06/22/2023): Pap NIL, HPV-, 01/28/2021 Mammo: Due for diag mammo 12/2023, BIRADS3 on 12/2022 and 06/2022 mammo CRC screening: ?cologuard 2020 Malignant tumor of oropharynx 02/17/2022 Overview (06/22/2023): Images from the original note were not included. Last visit 04/21/2023 w/ Dr. Moreno: Family history of BRCA gene mutation 07/23/2020 Type 2 diabetes mellitus without complication Encounters Date Type Department Care Team Description 11/20/2024 Telephone [facility] [address] [place] [id number] Mell Terrell ANP OUTREACH from Last 3 Months Immunizations Name Administration Dates Next Due Hep B, adult 01/28/2021,08/13/2020 Influenza High-dose Quadriva lent Preservative Free 06/22/2023,07/08/2022,08/13/2020 Influenza injectable quadriv alent preservative free 08/20/2021 Pneumococcal Conjugate PCV 13 04/05/2022 Pneumococcal Polysaccharide PPSV23 06/01/2022 Tdap 08/13/2020,04/10/2015 Zoster, Recombinant 09/18/2020 Social History Tobacco Use Types Packs/Day Years Used Date Smoking Tobacco: Former Cigarettes Smokeless Tobacco: Never Tobacco Cessation:Counseling Given: Not Answered Alcohol Use Standard Drinks/Week Comments Not Currently 0 (1 standard drink = 0.6 oz pur e alcohol) Depression Answer Date Recorded Patient Health Questionnaire-9 Score 0 06/22/2023 Housing Stability Answer Date Recorded What is your housing situation today? I have rosalind doyle 07/11/[address] you li ve. Do you have problems with any of the following? None of the above 07/11/2023 Food Insecurity Answer Date Recorded Within the past 12 months, y ou worried that your food would run out before you got money to buy more: Never True 07/11/2023 Within the past 12 months,th e food you bought just didn't last and you didn't have enough money to get more: Never True Transportation Answer Date Recorded In the past 12 months, has l ack of transportation kept you from medical appts, meetings, work or from getting things needed for daily living? No 07/11/2023 Utilities Answer Date Recorded In the past 12 months, has t he electric, gas, oil or water company threatened to shut off services in your home? No 07/11/2023 Depression Answer Date Recorded Patient Health Questionnaire-2 Score 0 06/22/2023 Comments Unknown Sex and Gender Information Value Date Recorded Sex Assigned at Female 07/19/2022 10:37 AM EDT Legal Sex Female 10:37 AM EDT Gender Identity Female 07/19/2022 10:37 AM EDT Sexual Orientation Straight 07/19/2022 10 :37 AM EDT Last Filed Vital Signs Vital Sign Reading Time Taken Comments Blood Pressure 128/81 04/16/2024 9:19 AM EDT Pulse 74 04/16/2024 9:19 AM EDT Temperature 36.8 ??C (98.3 ??F) 04/16/2024 9:19 AM ED T Respiratory Rate 26 04/16/2024 9:19 AM EDT Oxygen Saturation 98% 04/16/2024 9:19 AM EDT Inhaled Oxygen Concentration - - Weight 68.7 kg (151 lb 6.4 oz) 04/16/2024 9:19 A M EDT Height 157.5 cm (5' 2 ) 04/16/2024 9:19 AM EDT Body Mass Index 27.69 04/16/2024 9:19 AM EDT Plan of Treatment Upcoming Encounters Date Type Department Care Team (Late st Contact Info) Description 01/29/2025 9:15 AM EDT Office Visit [facility] [address] [place] [address] Mell Terrell ANP [address] [place] [address] Health Maintenance Due Date Last Done Comments CT Colonography 1955 Colonoscopy 1955 Dental Prophylaxis 1955 FIT 1955 FOBT 1955 Sigmoidoscopy 1955 Diabetes: Foot Exam 1963 Eye Exam 1963 Alcohol/Substance Use Screening 1965 Zoster Vaccines (2 of 2) 11/13/2020 09/18/2020 Hepatitis B Vaccines (3 of 3 - 19+ 3-dose series) 03/25/2021 01/28/2021, 08/13/2020 Diabetes: Urine Protein Screening 07/24/2021 07/24/2020 Lipid Panel 07/24/2021 07/24/2020 Dental Oral Exam 08/15/2022 02/11/2022 Dental X-Ray: Bitewings 02/12/2023 02/11/2022 Diabetes: Hemoglobin A1C 09/22/2023 023, 07/24/2020, 06/22/2020 COVID-19 Vaccine ( season) 2024 12/30/2021, 12/24/2020, 11/26/2020 Influenza Vaccine (#1) 2024 , 07/08/2022, 08/20/2021, Additional history exists Depression Screening 06/22/2024 06/22/2023, 06/22/20 SDOH Screening 06/22/2024 06/22/2023 Diagnostic Breast Imaging 01/09/20252023, 01/10/2024, 01/03/2023, Additional history exists Dental X-Ray: Full Mouth 02/12/2025 02/11/2022 Tobacco Screening 04/16/2025 04/16/2024 Colorectal Cancer Screening 04/11/2027 FIT DNA/Cologuard 04/11/2027 04/11/2024 RSV Patients and Patients Aged 60 years or older (1 - 1-dose 75+ series) 2028 DTaP/Tdap/Td Vaccines (3 - Td or Tdap) 08/13/2030 08/13/2020, 04/10/2015 Hepatitis C Screening Completed 07/24/2020 Pneumococcal Vaccine: 50+ Years Completed 06/01/2022, 04/05/2022 HIB Vaccines Aged Out No longer eligi ble based on patient's age to complete this topic HPV Vaccines Aged Out No longer eligi ble based on patient's age to complete this topic Hepatitis A Vaccines Aged Out No long er eligible based on patient's age to complete this topic IPV Vaccines Aged Out No longer eligi ble based on patient's age to complete this topic Meningococcal Vaccine Aged Out No gerson blair eligible based on patient's age to complete this topic RSV under 20 months Aged Out No longe r eligible based on patient's age to complete this topic Rotavirus Vaccines Aged Out No longer eligible based on patient's age to complete this topic Procedures Procedure Name Priority Date/Time Associated Diagnosis Comments LAB COLOGUARD?? COLON CANCER SCREEN Routine 04/11/2024 11:30 AM EDT Screening for malignant neoplasm of colon BI MAMMOGRAM DIAGNOSTIC TOMOSYNTHESIS BILATERAL Routine 01/10/2024 1:51 PM EDT POCT GLYCATED HEMOGLOBIN, TOTAL Routine 06/22/2023 3:03 PM EDT Type 2 diabetes mellitus without complication, without long-term current use of insulin (CMS/HCC) Hyperglycemia INTRAORAL - COMPLETE SERIES OF RADIOGRAPHIC IMAGES Routine 02/11/2022 12:00 AM EDT COMPREHENSIVE ORAL EVALUATION - NEW OR ESTABLISHED PATIENT Routine 02/11/2022 12:00 AM EDT ZZZ HISTORICAL HEPATITIS C AB W/REFL TO HCV RNA, QN, PCR Routine 07/24/2020 9:08 AM EST ALBUMIN, RANDOM URINE W/CREATININE Routine 07/24/2020 9:08 AM EST LIPID PANEL, STANDARD Routine 07/24/2020 9:08 AM EST from Last 3 Months or Most Recently Relevant to Health Maintenance Results * Cologuard?? colon cancer screening (04/11/2024 11:30 AM EDT) Cologuard Result Negative Negative 04/20/20 9:01 PM EDT [employer] (CLIA #:[id number]) Comment: NEGATIVE TEST RESULT. A negative Cologuard result indicates a low likelihood that a colorectal cancer (CRC) or advanced adenoma (adenomatous polyps with more advanced pre-malignant features) ??is present. The chance that a person with a negative Cologuard test has a colorectal cancer is less than 1 in 1500 (negative predictive value >99.9%) or has an ??advanced adenoma is less than ??5.3% (negative predictive value 94.7%). These data are based on a prospective cross-sectional study of 10,000 individuals at average risk for colorectal cancer who were screened with both Cologuard and colonoscopy. (Chantel Simon al, N Engl J Med 2014;370(14):1286- 1297) The normal value (reference range) for this assay is negative. COLOGUARD RE-SCREENING RECOMMENDATION: Periodic colorectal cancer screening is an important part of preventive healthcare for asymptomatic individuals at average risk for colorectal cancer. ??Following a negative Cologuard result, the [place] [employer] Society and U.S. Multi-Society Task Force screening guidelines recommend a Cologuard re-screening interval of 3 years. References: [place] [employer] Guideline for Colorectal Cancer Screening: https://www.cancer.org/cancer/bsket-ymtvwz-izgavh/lvrdpoqkm-uvsvockom-khkvyyo/ac s-rec ommendations.html.; Cain DK, Silvia STEWART, Silvia BakerK, Colorectal Cancer Screening: Recommendations for Physicians and Patients from the U.S. Multi-Society Task Force on Colorectal Cancer Screening , Am J Gastroenterology 2017; 112:9263-0738. TEST DESCRIPTION: Composite algorithmic analysis of stool DNA-biomarkers with hemoglobin immunoassay. ?? Quantitative values of individual biomarkers are not reportable and are not associated with individual biomarker result reference ranges. Cologuard is intended for colorectal cancer screening of adults of either sex, 45 years or older, who are at average-risk for colorectal cancer (CRC). Cologuard has been approved for use by the U.S. FDA. The performance of Cologuard was established in a cross sectional study of average-risk adults aged 50-84. Cologuard performance in patients ages 45 to 49 years was estimated by sub-group analysis of near-age groups. Colonoscopies performed for a positive result may find as the most clinically significant lesion: colorectal cancer [4.0%], advanced adenoma (including sessile serrated polyps greater than or equal to 1cm diameter) [20%] or non- advanced adenoma [31%]; or no colorectal neoplasia [45%]. These estimates are derived from a prospective cross-sectional screening study of 10,000 individuals at average risk for colorectal cancer who were screened with both Cologuard and colonoscopy. (Chantel Simon al, N Engl J Med 2014;370(14):1055-6999.) Cologuard may produce a false negative or false positive result (no colorectal cancer or precancerous polyp present at colonoscopy follow up). A negative Cologuard test result does not guarantee the absence of CRC or advanced adenoma (pre-cancer). The current Cologuard screening interval is every 3 years. ([place] [employer] Society and U.S. Multi-Society Task Force). Cologuard performance data in a 10,000 patient pivotal study using colonoscopy as the reference method can be accessed at the following location: www.Tern.com/results. Additional description of the Cologuard test process, warnings and precautions can be found at www.Alphabet Energyrd.com. Stool specimen (specimen) Rectal contents / Unknown 04/11/2024 11:30 AM EDT 04/12/2024 1:34 PM EDT Mell Terrell [facility] ORDERA BLES Final Result [employer] (CLIA #:[id number]) [address] [place] [address], * BI Mammogram Diagnostic Tomosynthesis Bilateral (01/10/2024 1:51 PM EDT) Anatomical Region Laterality Modality Breast Bilateral Mammography 01/10/2024 1:51 PM EDT Narrative 01/10/2024 2:31 PM EDT ? [facility] ? [address] ?[place] [address] ? Mammography Report ? Signed ? Patient: Markee,Venecia ?MR#: [id number] ? : 1955 ?Acct:[id number] ? Age/Sex: 68 / F ?ADM Date: 04/23/24 ? Loc: HO.MAMMO ? Attending Dr: Mell Terrell BRUSH OPERATOR ? Ordering Physician: NIDHI,MELL SHIRLEY ?Results: 2Benign Fin ?? dings ? Date of Service: 01/10/24 ?Follow Up: 1 Year From Orig ?? inal Mammogram ? Procedure(s): MM tomosynthesis diagnostic BI ?? Accession Number(s): [id number] ? cc: NIDHI,MELL BRUSH OPERATOR ? EXAMINATION: ?? MM DIAGNOSTIC DIGITAL BREAST TOMOSYNTHESIS, BILATERAL ? CLINICAL INFORMATION: ? 1 year follow-up right breast calcifications, probably benign. If ?? stable, this will establish two-year stability and benignity. Patient ?? also here for bilateral screening. ? COMPARISON: ?? Mammography: 01/03/2023, 06/29/2022, 12/25/2021, 12/23/2021 (BI-RADS ?? 0), 07/30/2020 (new baseline). ? TECHNIQUE: ?? Digital breast tomosynthesis is performed in both the craniocaudal and ?? mediolateral oblique views along with computer-aided detection (CAD). ?? Synthesized 2D images are generated from the tomosynthesis. ? FINDINGS: ?? The breasts are almost entirely fatty (ACR BI-RADS breast composition ?? Category a). ? There has been no significant change in the small group of ?? calcifications in the right breast upper outer quadrant, mid one third. ?? They have remained stable over 2 years and are benign. No further ?? follow-up recommended. ? There are no suspicious masses, suspicious grouped calcifications, or ?? areas of architectural distortion in either breast. The parenchymal ?? pattern is stable from prior exams. ? MM/MM tomosynthesis diagnostic BI ?? IMPRESSION: ?? -There are no findings suspicious for malignancy in either breast. ? -Calcifications in the upper outer right breast are stable over 2 years ?? and benign. No further follow-up recommended. ? -Recommend the patient resume routine annual screening to include both ?? breasts. ? ASSESSMENT: ? BI-RADS BI-RADS 2 - Benign Findings ? RECOMMENDATION: ?? 1 year F/U ? Results were provided to the patient at time of visit by the ?? technologist. ? This patient's information was entered into a reminder system with a ?? target due date for their next mammogram. ? Dictated By: ?Rafy Bonds MD ? Signed By: ?<Electronically signed by Rafy Bonds MD in OV> ?01/09/ 1427 ? DD/ 1351 ? TD/TT: ? Patient Sitter: ? Procedure Note Donginetteter, Image - 01/10/2024 Jarrod [facility] [address] [place] [address] Mammography Report Signed Patient: Chi Arriaga#: [id number] : 3Acct:[id number] Age/Sex: 68 / FADM Date: 01/10/24 Loc: HO.MAMMO Attending Dr: Mell Terrell NP Ordering Physician: MELL TERRELLesults: 2Beninivia jackson Date of Service: 01/10/24Follow Up: 1 Year From Orig ina Mammogram Procedure(s): MM tomosynthesis diagnostic BI Accession Number(s): [id number] cc: MELL TERRELL NP EXAMINATION: MM DIAGNOSTIC DIGITAL BREAST TOMOSYNTHESIS, BILATERAL CLINICAL INFORMATION: 1 year follow-up right breast calcifications, probably benign. If stable, this will establish two-year stability and benignity. Patient also here for bilateral screening. COMPARISON: Mammography: 01/03/2023, 06/29/2022, 12/25/2021, 12/23/2021 (BI-RADS 0), 07/30/2020 (new baseline). TECHNIQUE: Digital breast tomosynthesis is performed in both the craniocaudal and mediolateral oblique views along with computer-aided detection (CAD). Synthesized 2D images are generated from the tomosynthesis. FINDINGS: The breasts are almost entirely fatty (ACR BI-RADS breast composition Category a). There has been no significant change in the small group of calcifications in the right breast upper outer quadrant, mid one third. They have remained stable over 2 years and are benign. No further follow-up recommended. There are no suspicious masses, suspicious grouped calcifications, or areas of architectural distortion in either breast. The parenchymal pattern is stable from prior exams. MM/MM tomosynthesis diagnostic BI IMPRESSION: -There are no findings suspicious for malignancy in either breast. -Calcifications in the upper outer right breast are stable over 2 years and benign. No further follow-up recommended. -Recommend the patient resume routine annual screening to include both breasts. ASSESSMENT: BI-RADS BI-RADS 2 - Benign Findings RECOMMENDATION: 1 year F/U Results were provided to the patient at time of visit by the technologist. This patient's information was entered into a reminder system with a target due date for their next mammogram. Dictated By: Rafy Bonds MD Signed By: <Electronically signed by Rafy Bonds MD in OV> 01/10/24 1427 DD/ 1351 TD/TT: Patient Sitter: us Mell Terrell ANP IMG BI PROCEDURES Final Result * POCT A1C (06/22/2023 3:03 PM EDT) Hemoglobin A1C 5.5 4.0 - 6.0 % [employer] Lot # [id number] Lot# Expiration Date 51 Blood 06/22/2023 3:03 PM EDT us Mell Terrell ANP POINT OF CARE TEST ENTER/EDIT OR DERABLES Final Result * HEPATITIS C AB W/REFL TO HCV RNA, QN, PCR (07/24/2020 9:08 AM EST) HEPATITIS C ANTIBODY NON-REACT NIKITA NON-REACT NIKITA [facility] INDEX 0.07 <1.00 [facility] Comment: ?? HCV antibody was non-reactive. There is no laboratory ?? evidence of HCV infection. ?? In most cases, no further action is required. However, if recent HCV exposure is suspected, a test for HCV RNA (test code 07376) is suggested. ?? For additional information please refer to http://Promodity/faq/ATH56x9 (This link is being provided for informational/ educational purposes only.) ?? HEPATITIS C ANTIBODY NON-REACT NIKITA NON-REACT NIKITA [facility] INDEX 0.07 <1.00 [facility] Comment: ?? HCV antibody was non-reactive. There is no laboratory ?? evidence of HCV infection. ?? In most cases, no further action is required. However, if recent HCV exposure is suspected, a test for HCV RNA (test code 59933) is suggested. ?? For additional information please refer to http://Promodity/faq/RBT38b7 (This link is being provided for informational/ educational purposes only.) ?? HEPATITIS C ANTIBODY NON-REACT NIKITA NON-REACT NIKITA [facility] INDEX 0.07 <1.00 [facility] Comment: ?? HCV antibody was non-reactive. There is no laboratory ?? evidence of HCV infection. ?? In most cases, no further action is required. However, if recent HCV exposure is suspected, a test for HCV RNA (test code 97359) is suggested. ?? For additional information please refer to http://[employer].SureFire/faq/OMF84s1 (This link is being provided for informational/ educational purposes only.) ?? 07/24/2020 9:08 AM EST us Mell Terrell ANP HISTORICAL/NON ORDERABLE LABS Fi nal Result [facility] [address] * ALBUMIN, RANDOM URINE W/CREATININE (07/24/2020 9:08 AM EST) Microalbumin Urine 2.4 See Note: mg/dL [facility] Comment: Reference Range: ?? Reference Range Not established Microalb/Creat Ratio 20 <30 mcg/mg creat [facility] Comment: ?? The ADA defines abnormalities in albumin excretion as follows: ?? Category ? Result (mcg/mg creatinine) ?? Normal ?<30 Microalbuminuria ? 30-299 ?? Clinical albuminuria ?? > OR = 300 ?? The ADA recommends that at least two of three specimens collected within a 3-6 month period be abnormal before considering a patient to be within a diagnostic category. Microalbumin Urine 2.4 See Note: mg/dL [facility] Comment: Reference Range: ?? Reference Range Not established Microalb/Creat Ratio 20 <30 mcg/mg creat [facility] Comment: ?? The ADA defines abnormalities in albumin excretion as follows: ?? Category ? Result (mcg/mg creatinine) ?? Normal ?<30 Microalbuminuria ? 30-299 ?? Clinical albuminuria ?? > OR = 300 ?? The ADA recommends that at least two of three specimens collected within a 3-6 month period be abnormal before considering a patient to be within a diagnostic category. Creatinine, Urine 121 20 - 275 mg/dL [facility] Creatinine, Urine 121 20 - 275 mg/dL [facility] Creatinine, Urine 121 20 - 275 mg/dL [facility] Microalbumin Urine 2.4 See Note: mg/dL [facility] Comment: Reference Range: ?? Reference Range Not established Microalb/Creat Ratio 20 <30 mcg/mg creat [facility] Comment: ?? The ADA defines abnormalities in albumin excretion as follows: ?? Category ? Result (mcg/mg creatinine) ?? Normal ?<30 Microalbuminuria ? 30-299 ?? Clinical albuminuria ?? > OR = 300 ?? The ADA recommends that at least two of three specimens collected within a 3-6 month period be abnormal before considering a patient to be within a diagnostic category. Creatinine, Urine 121 20 - 275 mg/dL [facility] Microalbumin Urine 2.4 See Note: mg/dL [facility] Comment: Reference Range: ?? Reference Range Not established Microalb/Creat Ratio 20 <30 mcg/mg creat [facility] Comment: ?? The ADA defines abnormalities in albumin excretion as follows: ?? Category ? Result (mcg/mg creatinine) ?? Normal ?<30 Microalbuminuria ? 30-299 ?? Clinical albuminuria ?? > OR = 300 ?? The ADA recommends that at least two of three specimens collected within a 3-6 month period be abnormal before considering a patient to be within a diagnostic category. 07/24/2020 9:08 AM EST us Mell [facility] [place] [place] LAB URINE ORDERABLES Final Resul t [facility] [address] * (ABNORMAL) LIPID PANEL, STANDARD (07/24/2020 9:08 AM EST) Cholesterol, Total 182 <200 mg/dL [facility] Chol/HDLC Ratio 3.1 <5.0 (calc) [facility] Chol/HDLC Ratio 3.1 <5.0 (calc) [facility] HDL Cholesterol 58 > OR = 50 mg/dL [facility] Non-HDL Cholesterol 124 <130 mg/dL (calc) [facility] Comment: For patients with diabetes plus 1 major ASCVD risk ?? factor, treating to a non-HDL-C goal of <100 mg/dL ?? (LDL-C of <70 mg/dL) is considered a therapeutic ?? option. LDL Cholesterol 101(H) mg/dL (calc) [facility] Comment: Reference range: <100 ?? Desirable range <100 mg/dL for primary prevention; ?? <70 mg/dL for patients with CHD or diabetic patients ?? with > or = 2 CHD risk factors. ?? LDL-C is now calculated using the Charli ?? calculation, which is a validated novel method providing ?? better accuracy than the Friedewald equation in the ?? estimation of LDL-C. ?? Larry OLGUIN et al. LIZA. 2013;310(19): 1917-4610 ?? (http://[employer].DrAvailable/faq/TYT784) HDL Cholesterol 58 > OR = 50 mg/dL [facility] Chol/HDLC Ratio 3.1 <5.0 (calc) [facility] Triglycerides 131 <150 mg/dL [facility] Cholesterol, Total 182 <200 mg/dL [facility] Triglycerides 131 <150 mg/dL [facility] HDL Cholesterol 58 > OR = 50 mg/dL [facility] Non-HDL Cholesterol 124 <130 mg/dL (calc) [facility] Comment: For patients with diabetes plus 1 major ASCVD risk ?? factor, treating to a non-HDL-C goal of <100 mg/dL ?? (LDL-C of <70 mg/dL) is considered a therapeutic ?? option. Cholesterol, Total 182 <200 mg/dL [facility] LDL Cholesterol 101(H) mg/dL (calc) [facility] Comment: Reference range: <100 ?? Desirable range <100 mg/dL for primary prevention; ?? <70 mg/dL for patients with CHD or diabetic patients ?? with > or = 2 CHD risk factors. ?? LDL-C is now calculated using the Larry-Hernández ?? calculation, which is a validated novel method providing ?? better accuracy than the Friedewald equation in the ?? estimation of LDL-C. ?? Larry SS et al. LIZA. 2013;310(19): 5557-6642 ?? (http://[employer].DrAvailable/faq/RMM384) Triglycerides 131 <150 mg/dL [facility] Non-HDL Cholesterol 124 <130 mg/dL (calc) [facility] Comment: For patients with diabetes plus 1 major ASCVD risk ?? factor, treating to a non-HDL-C goal of <100 mg/dL ?? (LDL-C of <70 mg/dL) is considered a therapeutic ?? option. Cholesterol, Total 182 <200 mg/dL [facility] LDL Cholesterol 101(H) mg/dL (calc) [facility] Comment: Reference range: <100 ?? Desirable range <100 mg/dL for primary prevention; ?? <70 mg/dL for patients with CHD or diabetic patients ?? with > or = 2 CHD risk factors. ?? LDL-C is now calculated using the Larry-Hernández ?? calculation, which is a validated novel method providing ?? better accuracy than the Friedewald equation in the ?? estimation of LDL-C. ?? Larry SS et al. LIZA. 2013;310(19): 1686-2164 ?? (http://education.Genius Digital.RegBinder/faq/AUH212) LDL Cholesterol 101(H) mg/dL (calc) [facility] Comment: Reference range: <100 ?? Desirable range <100 mg/dL for primary prevention; ?? <70 mg/dL for patients with CHD or diabetic patients ?? with > or = 2 CHD risk factors. ?? LDL-C is now calculated using the Charli ?? calculation, which is a validated novel method providing ?? better accuracy than the Friedewald equation in the ?? estimation of LDL-C. ?? Larry OLGUIN et al. LIZA. 2013;310(19): 6912-9202 ?? (http://education.Genius Digital.RegBinder/faq/ZZD581) HDL Cholesterol 58 > OR = 50 mg/dL [facility] Non-HDL Cholesterol 124 <130 mg/dL (calc) [facility] Comment: For patients with diabetes plus 1 major ASCVD risk ?? factor, treating to a non-HDL-C goal of <100 mg/dL ?? (LDL-C of <70 mg/dL) is considered a therapeutic ?? option. Triglycerides 131 <150 mg/dL [facility] Chol/HDLC Ratio 3.1 <5.0 (calc) [facility] 07/24/2020 9:08 AM EST Mell Terrell [facility] BLOOD ORDERABLES Final Resul t [facility] [address] from Last 3 Months or Most Recently Relevant to Health Maintenance Insurance STANDARD MEDICARE DENTAL-[facility] MEDICAID STAND ADULT Care Teams Museum Docent Relationship Specialty Start Date End Date Mell Trerell ANP [address] [place] [id number] PCP - General Family Medicine 07/30/20
--- OUTSIDE RECORDS SUMMARY | 2025-01-17 11:14 | XMS_ITS | Continuity of Care Document ---
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 Phone Unavailable Unavailable Unavailable Medications Medication Instructions Dosage Effective Dates (start - stop) Status Comments Dulera 100-5 mcg/actuation use as directed - Active albuterol sulfate HFA 90 mcg/actuation Aerosol Inhaler inhale 1 - 2 puffs by inhalation route every 4 hours as needed PRN - Active prednisone 20 mg 60 mg po daily for 5 days - Active albuterol sulfate HFA 90 mcg/actuation Aerosol Inhaler inhale 2 puffs by inhalation route every 4 hours as needed - Active Advance Directives Directive Yes / No Effective Date File Name No Information Encounters Encounter Description Practice Location Reason(s) For Visit Diagnoses Date Provider Providers Copied on Encounter [facility], [address] [place] [address], tel:[phone] [facility] Adult Medicine No Information 2 No Information [facility], [address] [place] [address], tel:[phone] Historic Immunization Location No Information 2 No Information [facility], [address] [place] [address], tel:[phone] Conversion NORMAL ROUTINE HISTORY AND PHYSICALOBESI TYSPECIAL SCREENING FOR MALIGNANT NEOPLASMS, COLON 2 No Information [facility], [address] [place] [address], tel:[phone] Conversion No Information 2 No Information [facility], [address] [place] [address], tel:[phone] Conversion ASTHMA 201 2 No Information Family History Family Member Type Diagnosis Age At Onset No Information Immunizations Vaccine Date Status Comments PNEUMOCOCCAL VACCINE administered Source: New Immunization Record IMMUNIZATION ADMIN administered Source: N ew Immunization Record Payers Payer name Insurance type Covered libertarian ID Authoriza tion(s) No Information Social History Type Description Quantity Date Captured Comments Sex Female Smoking Status No Information Chief Complaint And Reason For Visit No Information Reason For Referral Reason For Referral No Information History Of Present Illness Encounter Date Complaint History Of Prese nt Illness No Information Functional Status Date Functional Assessmen t No Information Instructions Date Instruction Additional Infor mation No Information Assessments Type Assessment Date No Information Patient Care Teams Name Effective Dates (start - stop) Status Members No Information
--- OUTSIDE RECORDS SUMMARY | 2025-01-17 11:14 | XMS_ITS | Clinical Summary ---
Author Organization [facility] Address [address] [place] [address] Care Team Providers Care Antique Furniture Restorer Name Role Phone Pcp, No Primary Care Provider Unavailabl e Social History Tobacco Use Types Packs/Day Years Used Date Smoking Tobacco: Never Assessed Comments Unknown Sex and Gender Information Value Date Recorded Sex Assigned at Not on file Legal Sex Female 11:53 AM EST Gender Identity Not on file Sexual Orientation Not on file Plan of Treatment Health Maintenance Due Date Last Done Comments Hepatitis C Virus Screening 1955 DTaP/Tdap/Td Vaccines (1 - Tdap) 1972 Mammogram 1993 Colonoscopy 1998 Pneumococcal Vaccines 50+ (1 of 1 - PCV) 2003 Zoster (Shingles) Vaccine (1 of 2) 2003 DXA Bone Density (Females,Ag es 65 and older) 2018 Influenza Vaccine 04/19/2024 COVID-19 Vaccine ( - 2023-2 5 season) 2024 RSV Vaccine 60 years and old er and Patients (1 - 1-dose 75+ series) 2028 Hepatitis B Vaccines Aged Out No long er eligible based on patient's age to complete this topic Medical Devices Implanted Type Area Insurance Healthcare Representative Device Identifier Shelf Expiration Date Model / Serial / Lot Lens Iol 0 D +15.5 Elvia Mod L Bcnvx 13mm 6mm Posterior - [id number] Implanted:Qty: 1 on 08/22/2018 by Joshua Haegn MD at [facility] [place] [employer] [id number] 55 / [id number] / Lens Iol 0 D +13.5 Elvia Mod L Bcnvx 13mm 6mm Posterior - [id number] Implanted:Qty: 1 on 09/27/2018 by Joshua Hagen MD at [facility] [place] [employer] [id number] 35 / [id number] / Insurance MEDICARE PART A & B [facility] [place] [place] [facility] [place] Care Teams Antique Furniture Restorer Relationship Specialty Start Date End Date Pcp, No PCP - General General Medicine 08/14/18
--- OUTSIDE RECORDS SUMMARY | 2025-01-17 11:14 | XMS_ITS | Encounter Summary ---
Author Organization [employer] Address [address] [place] [id number] Care Team Providers Care Scrape Gatherer Name Role Phone Amelia Cole Primary Care Provider [phone] Encounter Details Date Type Department Care Team (Late st Contact Info) Description 03/14/2023 Abstract [facility] [address] [place] [address] [phone] Amelia Cole ANP [address] [place] [phone] Social History Tobacco Use Types Packs/Day Years Used Date Smoking Tobacco: Never Smokeless Tobacco: Never Alcohol Use Standard Drinks/Week Comments Not Currently 0 (1 standard drink = 0.6 oz pur e alcohol) Comments Unknown Sex and Gender Information Value Date Recorded Sex Assigned at Female 07/19/2022 10:37 AM EDT Legal Sex Female 10:37 AM EDT Gender Identity Female 07/19/2022 10:37 AM EDT Sexual Orientation Straight 07/19/2022 10 :37 AM EDT documented as of this encounter Plan of Treatment Upcoming Encounters Date Type Department Care Team (Late st Contact Info) Description 01/29/2025 9:15 AM EDT Office Visit [facility] [address] [place] [address] [phone] Amelia Cole ANP [address] [place] [address] [phone] documented as of this encounter Visit Diagnoses Not on filedocumented in this encounter Care Teams Scrape Gatherer Relationship Specialty Start Date End Date Amelia Cole ANP [address] [place] [address] PCP - General Family Medicine 07/30/20 documented as of this encounter
== END 2025-01-17 10:01 | disposition home or self-care (01) ==
LOC: HO.MAMMO 10:00
PROVIDERS: PCP Nurse Practitioner Primary Care; Visit Provider Nurse Practitioner Primary Care
DX: Z12.31 Encounter for screening mammogram for malignant neoplasm of breast (principal)
CPT/HCPCS: 77063; 77067

== ENCOUNTER → 2025-01-17 10:00 | Outpatient (BNV) | payer MEDICARE, MEDICAID, SELFPAY | PROVIDERS: PCP Nurse Practitioner Primary Care; Visit Provider Internal Medicine | DX: Z12.31 Encounter for screening mammogram for malignant neoplasm of breast (principal) | CPT/HCPCS: 77063; 77067 ==

== ENCOUNTER 2025-01-28 15:15 | Emergency (ER) | payer MEDICARE, MEDICAID, SELFPAY ==
[2025-01-28] VITALS (7 sets, daily range): BP systolic 80–110; BP diastolic 40–64; PULSE 73–82; RESP 14–18; TEMP 36.6–36.9; O2SAT 97–100; BMI 28.4
--- NOTE | ~2025-01-28 | CT_ITS ---
CLINICAL HISTORY: seizure CT head without contrast Comparison: None Findings: No acute hemorrhage. No extra-axial fluid collection. No hydrocephalus, mass-effect or herniation. Bartlett-white differentiation is maintained. White matter is within normal limits for age. No acute orbital pathology. No acute soft tissue abnormality. No fracture. The visualized paranasal sinuses are predominantly clear. The mastoid air cells are clear. Impression: No acute findings. This document has been electronically signed by: Nichol Singer MD on 01/28/2025 18:20:36
--- NOTE | 2025-01-28 15:34 | ECG_ITS ---
Test Reason : DIZZINESS Blood Pressure : */* mmHG Vent. Rate : 71 BPM Atrial Rate : 71 BPM P-R Int : 174 ms QRS Dur : 78 ms QT Int : 396 ms P-R-T Axes : 48 -5 19 degrees QTcB Int : 430 ms Normal sinus rhythm Minimal voltage criteria for LVH, may be normal variant ( R in aVL ) Cannot rule out Anterior infarct , age undetermined Abnormal ECG No previous ECGs available Referred By: Generic ED Physician Electronically Signed By: JOB WADE MD
[2025-01-28 15:54] LABS: Glucose, Whole Blood 96 mg/dL (60-115)
[2025-01-28 15:56] LABS: MANUAL DIFF FLAG NO
[2025-01-28] MEDS: 0.9 % Sodium Chloride 1,000 ML 999 ML IV ×3 (15:56→18:07)
[2025-01-28 15:59] LABS: Basophils Absolute Auto 0.1 X10*3/uL (0.0-0.2); Basophils Percent Auto 1.2 % (0-2); Eosinophils Absolute Auto 0.1 X10*3/uL (0.0-0.4); Eosinophils Percent Auto 1.2 % (0-4); Hematocrit 37.5 % (37.0-47.0); Hemoglobin 11.5 g/dl (12.0-16.0); Imm Gran Abs Auto 0.01 X10*3/uL (0.00-0.03); Imm Gran Pct Auto 0.2 % (0.0-0.4); Lymphocytes Absolute Auto 0.9 X10*3/uL (1.2-4.9); Lymphocytes Percent Auto 16.6 % (20-40); Mean Corpuscular HGB Conc 30.7 g/dl (31.0-35.0); Mean Corpuscular Hemoglobin 29.1 pg (27.0-33.0); Mean Corpuscular Volume 94.9 fL (80.0-98.0); Mean Platelet Volume 10.1 fL (9.4-12.3); Monocytes Absolute Auto 0.4 X10*3/uL (0.1-1.2); Monocytes Percent Auto 7.5 % (2-11); Neutrophils Absolute Auto 3.8 x10*3/uL (2.0-8.3); Neutrophils Percent Auto 73.3 % (45-73); Platelet Count 216 X10*3/uL (160-400); Red Blood Count 3.95 X10*6/uL (4.20-5.50); Red Cell Distribution Width 12.3 % (11.0-16.0); White Blood Count 5.2 X10*3/uL (4.8-10.8)
--- NOTE | 2025-01-28 16:03 | ED_ITS ---
HPI - General Adult General Chief complaint: General Medical Stated complaint: convulsed, abdpain, full body tension, blurry Time Seen by Provider: 01/28/25 15:44 Source: patient Mode of arrival: ambulatory Limitations: no limitations History of Present Illness ED Provider: Dr. Fonseca HPI narrative: 69 year old female PMH: DM, who presents to the ER after a seizure vs syncope. She had moved furniture and worked outside today. She felt weak asked for some water and then passed out. They did relate there were convulsions. She again passed out for EMS. Arrives here hypotensive and tired but recalls the episodes no history of seizure did not lose control of bowel or bladder. Patient did not hit head no LOC no chest pain cough fever nausea vomiting or diarrhea. Related Data Home Medications ?Medication ?Instructions ?Recorded ?Confirmed metformin 500 mg tablet 250 mg PO DAILY 01/27/22 01/27/22 Allergies Allergy/AdvReac Type Severity Reaction Status Date / Time No Known Allergies Allergy Verified 01/28/25 15:38 Review of Systems 2 Review of Systems: Review of systems: General: Patient denies any fever chills recent illness or falls Musculoskeletal: Denies back pain or body aches or other injuries HEENT: denies headache, runny nose, ear pain Respiratory: denies shortness of breath, cough Cardiovascular: no chest pain or palpitations : denies dysuria, frequency Abdomen: no nausea vomiting denies abdominal pain Extremities: no swelling, no pain Skin: no diaphoresis Yes all other systems are reviewed and are negative PMFSH Past Medical History Medical History (Updated 01/28/25 @ 18:04 by Aristeo Fonseca DO) Diabetes Patient denies medical problems No known health problems Surgical History (Updated 01/27/22 @ 15:43 by Mandy Stark MD) Hx of hysterectomy Family History Family History (Updated 01/27/22 @ 10:37 by Edita Pierce RN) Mother Ovarian cancer Sister Breast cancer Maternal Grandmother Breast cancer Social History Social History (Updated 01/27/22 @ 10:25 by Edita Pierce, WILL) Household Members: Family Patient Tobacco Use Status: Former Tobacco user Tobacco use type: Cigarette Smoked in Last 30 Days: No Use of substances other than those prescribed or required for medical reasons: No Advance Directives: No Advance Directives Information Provided: Yes Do you have a plan to hurt others: No Plan Current occupational status: employed Current occupation: works from home Physical Exam ED Vital Signs: Vital Signs - 24 hr 01/28/25 15:36 01/28/25 15:52 01/28/25 16:00 Temperature 97.9 F 98.4 F 98.4 F Pulse Rate 82 78 78 Respiratory Rate 18 15 15 Blood Pressure 81/45 L 90/45 L 90/45 L Pulse Oximetry 98 99 99 Oxygen Delivery Method Room Air Room Air Room Air 01/28/25 16:58 01/28/25 17:46 01/28/25 18:00 Temperature 98.4 F Pulse Rate 81 78 77 Respiratory Rate 18 14 18 Blood Pressure 110/64 110/60 110/61 Pulse Oximetry 97 100 97 Oxygen Delivery Method Room Air Room Air Room Air BMI result Body Mass Index 28.4 Neurological exam: CN II- XII tested. Patient is alert and oriented to person place and time. Patient has no dysphagia or dysarthia, denies good vision in all four vision trejo no nystagmus on exam, good strength to upper and lower extremities with normal reflexes to brachioradialis, wrist, patella and achilles. Negative romberg, good finger to nose and heel to soliman. General: Well-appearing well-nourished in no signs of distress HEENT: Normocephalic atraumatic Neck: No signs of JVD, no masses no tenderness or lymphadenopathy Cardiovascular: Regular rate and rhythm Respiratory: Clear to auscultation bilaterally Abdomen: Soft nontender no masses Extremities: Normal pedal pulses no signs of edema Skin: Dry warm no rashes Back: No tenderness full ROM Course Course Course Narrative: AFter arrival BP improvd with fluids. Daughter also came in and stated she complained of belly pain and tried to go to the bathroom and that is when she lost consciosness no post cital state. Looks well but has had multiple episodes of diarrhea since. Labs are okay I feel this is less likely seizure than earlier she did get a CT which was normal. I will give another liter of fluid. No recent antibiotics to suggest that this is C diff. Reevaluation(s) Reevaluation #1: Patient is able to eat patient looks well I do think this is likely vasovagal seem to be pressure was much improved she is feeling much better and was okay with the plan to go Medications Administered Generic Name Dose Route Start Last Admin Trade Name Freq PRN Reason Stop Dose Admin Sodium Chloride 1,000 mls @ 999 mls/hr 01/28/25 18:15 01/28/25 18:07 Ns IV 01/28/25 19:15 999 mls/hr .Q1H1M VIRGILIO Administration Discontinued Medications Generic Name Dose Route Start Last Admin Trade Name Kris PRN Reason Stop Dose Admin Sodium Chloride 1,000 mls @ 999 mls/hr 01/28/25 15:45 01/28/25 16:53 Ns IV 01/28/25 16:45 Infused .Q1H1M VIRGILIO Infusion Sodium Chloride 1,000 mls @ 999 mls/hr 01/28/25 16:00 01/28/25 16:53 Ns IV 01/28/25 17:00 Infused .Q1H1M VIRGILIO Infusion Medical Decision Making Medical Decision Making [facility] Narrative: do think this is syncope patient arrives dehydrated she denies hitting her head patient given fluids we will hold the patient here continued fluids check labs and reassess. Differential Diagnosis Differential Diagnoses: The differential diagnosis associated with the presentation includes dehydration electrolyte abnormality syncope versus seizure Lab Data [facility] Lab Attestation statement: I reviewed the patient's lab results. 01/28/25 15:49 01/28/25 15:49 Labs: Lab Results 01/28/25 01/28/25 Range/Units 15:48 15:49 WBC 5.2 (4.8-10.8) X10*3/uL RBC 3.95 L (4.20-5.50) X10*6/uL Hgb 11.5 L (12.0-16.0) g/dl Hct 37.5 (37.0-47.0) % MCV 94.9 (80.0-98.0) fL MCH 29.1 (27.0-33.0) pg MCHC 30.7 L (31.0-35.0) g/dl RDW 12.3 (11.0-16.0) % Plt Count 216 D (160-400) X10*3/uL MPV 10.1 (9.4-12.3) fL Immature Gran % (Auto) 0.2 (0.0-0.4) % Neut % (Auto) 73.3 H (45-73) % Lymph % (Auto) 16.6 L (20-40) % Owen % (Auto) 7.5 (2-11) % Eos % (Auto) 1.2 (0-4) % Baso % (Auto) 1.2 (0-2) % Lymph # (Auto) 0.9 L (1.2-4.9) X10*3/uL Owen # (Auto) 0.4 (0.1-1.2) X10*3/uL Eos # (Auto) 0.1 (0.0-0.4) X10*3/uL Baso # (Auto) 0.1 (0.0-0.2) X10*3/uL Abs Immat Gran (auto) 0.01 (0.00-0.03) X10*3/uL Absolute Neuts (auto) 3.8 (2.0-8.3) x10*3/uL Absolute Nucleated RBC 0.000 (0.0-0.012) X10*3/uL Nucleated RBC % (auto) 0.0 (0.0-0.2) /100WBC Sodium 141 (135-145) mmol/L Potassium 3.6 (3.3-5.1) mmol/L Chloride 107 (96-108) mmol/L Carbon Dioxide 23 (22-29) mmol/L Anion Gap 15 (12-20) BUN 15 (9-16) mg/dL Creatinine 0.75 (0.5-1.4) mg/dL Estim Creat Clear Calc 60.7 Estimated GFR > 60 POC Glucose 96 (60-115) mg/dL Random Glucose 108 (60-115) mg/dL Calcium 9.0 D (8.4-10.2) mg/dL Magnesium 1.8 (1.6-2.6) mg/dL Total Bilirubin 0.5 (0.0-1.0) mg/dL AST 21 (5-31) U/L ALT 6 (0-31) U/L Alkaline Phosphatase 62 (39-117) U/L Troponin I High Sens < 2.7 (<3.5-17.0) ng/L Total Protein 6.1 L (6.5-8.0) g/dL Albumin 3.6 (3.5-5.0) g/dL Lipase 21 (8-78) U/L Independent Interpretation I performed an independent interpretation of an: EKG Interpretation: Rate 71 normal sinus rhythm normal intervals no signs of ischemia no concerning signs for sudden including no RSR prime in V1 and V2 concerning for Brugada syndrome there was no delta wave or short MO interval the QTC interval is normal there is no epsilon wave and there was no signs of LVH or knee like Q-waves for hypertrophic cardiomyopathy or arrhythmogenic right ventricular dysplasia Independent Historian Clinical information obtained from an independent historian. History obtained from or confirmed by: Other External Record Review External record reviewed: Inpatient record and Office record Chronic Conditions Patient?s care impacted by: Diabetes Core Measures AMI core measures followed: Yes Discharge Plan Discharge Clinical Impression: Syncope, Acute hypotension, Acute dehydration, Diarrhea Patient Disposition: Home, Self-Care Instructions: Syncope (DC), Acute Diarrhea (ED), Syncope in Older Adults (ED) Additional Instructions: you were seen in the emergency department after passing out. While here he had multiple episodes of diarrhea we did get labs you were given fluids and we did get a CAT scan which were all unremarkable. Please call follow up with your doctor if you have any other concerns please return to the ER. Prescriptions: No Action metformin 500 mg tablet 250 mg PO DAILY Print Language: Divehi
[2025-01-28 16:17] LABS: Alanine Aminotransferase 6 U/L (0-31); Albumin Level 3.6 g/dL (3.5-5.0); Anion Gap 15 (12-20); Aspartate Amino Transferase 21 U/L (5-31); Bilirubin Total 0.5 mg/dL (0.0-1.0); Blood Urea Nitrogen 15 mg/dL (9-16); Carbon Dioxide 23 mmol/L (22-29); Chloride 107 mmol/L (96-108); Creatinine Clr Calc Pharmacy 60.7; Estimated Glomerular Filt Rate > 60; Glucose Random 108 mg/dL (60-115); Lipase 21 U/L (8-78); Magnesium 1.8 mg/dL (1.6-2.6); Potassium 3.6 mmol/L (3.3-5.1); Sodium 141 mmol/L (135-145); Total Protein 6.1 g/dL (6.5-8.0); Troponin-I High Sensitivity < 2.7 ng/L (<3.5-17.0)
[2025-01-28 16:45] LABS: Alkaline Phosphatase 62 U/L (39-117)
--- NOTE | 2025-01-28 16:55 | MHC.EDTECH ---
Patient had large BM on bedpan therefore patient cleaned
== END 2025-01-28 19:05 | disposition home or self-care (01) ==
PROVIDERS: Emergency Provider Student in an Organized Health Care Education/Training Program; PCP Nurse Practitioner Primary Care
DX: R55 Syncope and collapse (principal); I95.9 Hypotension, unspecified; R53.1 Weakness; E86.0 Dehydration; R19.7 Diarrhea, unspecified; E11.9 Type 2 diabetes mellitus without complications; Z79.84 Long term (current) use of oral hypoglycemic drugs
CPT/HCPCS: 36415; 70450; 80053; 82947; 83690; 83735; 84484; 85025; 93005; 96360; 96361; 99284; 99285

== ENCOUNTER → 2025-01-28 15:34 | Outpatient (BNV) | payer MEDICARE, MEDICAID, SELFPAY | PROVIDERS: Emergency Provider Student in an Organized Health Care Education/Training Program; PCP Nurse Practitioner Primary Care; Visit Provider Internal Medicine Cardiovascular Disease | DX: R94.31 Abnormal electrocardiogram [ECG] [EKG] (principal); R42 Dizziness and giddiness | CPT/HCPCS: 93010 ==

== ENCOUNTER → 2025-01-28 15:45 | Outpatient (BNV) | payer MEDICARE, MEDICAID, SELFPAY | PROVIDERS: Emergency Provider Student in an Organized Health Care Education/Training Program; PCP Nurse Practitioner Primary Care; Visit Provider Radiology Diagnostic Radiology | DX: R56.9 Unspecified convulsions (principal) | CPT/HCPCS: 70450 ==